=== PATIENT | male | born 1945 | race Caucasian/White ===

== ENCOUNTER 2019-02-13 20:58 | Emergency (ER) | payer MEDICARE, OTHER ==
[2019-02-13] MEDS ORDERED: Albuterol Sulfate 2.5 mg/3 ml Neb ONE (21:51)
[2019-02-13] MEDS ORDERED: Ipratropium Bromide 2.5 ml Neb ONE (21:51)
[2019-02-13] MEDS ORDERED: Albuterol Sulfate 2.5 mg/0.5 ml Neb ONE (21:52)
[2019-02-13] MEDS ORDERED: Azithromycin 250 MG TAB ONE (21:52)
--- NOTE | 2019-02-13 22:13 | RAD ---
EXAM: Chest Two Views 02/13/2019 10:11 PM HISTORY: Cough COMPARISON: None. FINDINGS: Heart: Normal in size and contour. Pulmonary vessels: Normal. Costophrenic angles: Clear. Lungs: No acute airspace consolidation. Pneumothorax: None. Osseous structures:There is scattered degenerative and osteoarthritic change present. Additional findings: Dual-lead pacemaker overlies the left chest wall. The leads appear intact. IMPRESSION: No significant acute intrathoracic disease.
== END 2019-02-13 22:50 | disposition home or self-care (01) ==
LOC: MADERS 20:58
DX: J22 Unspecified acute lower respiratory infection (principal); N40.0 Benign prostatic hyperplasia without lower urinary tract symptoms; I49.9 Cardiac arrhythmia, unspecified; I48.91 Unspecified atrial fibrillation; K21.9 Gastro-esophageal reflux disease without esophagitis; I10 Essential (primary) hypertension; F17.210 Nicotine dependence, cigarettes, uncomplicated; Z79.01 Long term (current) use of anticoagulants; Z79.899 Other long term (current) drug therapy
CPT/HCPCS: 71046; J7611